=== PATIENT | female | born 1975 | race Caucasian/White ===

== ENCOUNTER → 2016-10-20 | Outpatient (CLI) | payer BC ==
[~2016-10-20] MED LIST: ALPR-411 PO; AMIL5TAB15 PO; B COTAB PO; CALC-348 PO; CALC1CAP36 PO; CZR50 PO; ERGO1CAP41 PO; ESCI1TAB10 PO; LOPE2TAB74 PO; LPT/20 PO; MAGN400T6 PO; MAGN400T7 PO; METO25TA56 PO; MYCO1TAB7 PO; NIFE1TAB53 PO; NIFE30TA83 PO; OXYC-57 PO; PHEN-876 PO; POTA20TA16 PO; PRED-301 PO; PRG1 PO; TPRSR/25 PO; ULT/50 PO; VSC/5 PO; ZOLP10TA6 PO
--- NOTE | 2016-10-23 14:54 | MAMMOGRAPHY REPORT ---
BILATERAL DIGITAL SCREENING MAMMOGRAM TOMOSYNTHESIS WITH CAD: 10/20/2016 CLINICAL HISTORY: Routine screening. Patient has no complaints. TECHNIQUE: Breast tomosynthesis in addition to standard 2D mammography was performed. Current study was also evaluated with a Computer Aided Detection (CAD) system. COMPARISON: Comparison is made to exams dated: 10/18/2015 mammogram and 10/16/2014 mammogram - [facility]. BREAST COMPOSITION: The tissue of both breasts is heterogeneously dense, which may obscure small ma sses. FINDINGS: No suspicious masses, calcifications, or areas of architectural distortion are noted in e ither breast. There has been no significant interval change compared to prior exams. IMPRESSION: ACR BI-RADS CATEGORY 1: NEGATIVE There is no mammographic evidence of malignancy. A 1 year screening mammogram is recommended. The p atient will receive written notification of the results. Approximately 10% of breast cancers are not detected with mammography. A negative mammographic repor t should not delay biopsy if a clinically suggestive mass is present. Michelle Madrid M.D. ah/:10/20/2016 16:30:15 Cullet Crusher: Wendy EUBANKS(R)(M), [facility] letter sent: Normal 1/2 BI-RADS Code: ACR BI-RADS Category 1: Negative
== END | disposition home or self-care (01) ==
LOC: C.MAMM 15:23
PROVIDERS: ATTEND Obstetrics & Gynecology
DX: Z12.31 Encounter for screening mammogram for malignant neoplasm of breast (principal)

== ENCOUNTER → 2016-11-02 | Outpatient (CLI) | payer BC ==
[~2016-11-02] MED LIST changes: -B COTAB PO; -LOPE2TAB74 PO; -MAGN400T7 PO; -NIFE1TAB53 PO; -OXYC-57 PO; -TPRSR/25 PO; -ULT/50 PO
== END | disposition home or self-care (01) ==
LOC: C.LAB 08:25
PROVIDERS: ATTEND Internal Medicine Nephrology
DX: E55.9 Vitamin D deficiency, unspecified (principal); Z94.0 Kidney transplant status

== ENCOUNTER → 2016-11-10 | Day surgery (SDC) | payer BC ==
[2016-10-31 14:05] VITALS: Ht 167.6 cm; Wt 81.8 kg
[~2016-11-10] VITALS: Ht 167.6 cm; Wt 81.8 kg
[~2016-11-10] MED LIST changes: +LIDOCAINE HCL 2% 2 ML VIAL (20MG/ML) ONE; +MIDAZOLAM HCL 1 MG/ML 2ML VIAL ONE; +PROPOFOL IV EMULSION 10 MG/ML 20 ML VIAL IV ONE; +SODIUM CHLORIDE 0.9% 500ML 500 ML IV ONE
--- NOTE | 2016-11-10 10:15 | Endo History and Physical ---
History & Physical Date of Service: Nov 10, 2016. Chief Complaint: Diarrhea Referring Physician: Dr. Turcios History of Present Illness 41 yo CF who presents for colonoscopy secondary to diarrhea. Past Medical History Anxiety, Reflux, CHF, Hypertension, Kidney Disease Past Surgical History Hx Cardiac Surgery: Yes (CARDIAC BIOPSY) Hx Internal Defibrillator: No Hx Pacemaker: No Hx Abdominal Surgery: Yes (APPY, X1, PERITONEAL CATH AND REMOVAL) Hx of Implantable Prosthesis: No Hx Post-Op Nausea and Vomiting: No Hx Cancer Surgery: No Hx Thoracic Surgery: No Hx Orthopedic: No Hx Urinary Tract Surgery: Yes (1 KIDNEY TRANSPLANT) Family History None Social History Smoking Status: Never Smoker Hx Substance Use: No Hx Alcohol Use: No Allergies Coded Allergies: NSAIDs (Verified Allergy, Unknown, contraindicated hx RENAL TRANSPLANT, ) Vancomycin (Verified Allergy, Unknown, rash, 10/31/16) Dobutamine (Verified Adverse Reaction, Severe, SLOW HRT RATE AND SEVERE MIGRAINE, 10/31/16) Hydrocodone (Verified Adverse Reaction, Unknown, itchy scalp, 10/31/16) Current Medications Reported Home Medications Medications Dose Route/Sig Max Daily Dose Days Date Category Vitamin D 65665 Unit (Ergocalciferol) 50,000 Unit Cap 1 Tab PO WK 10/31/16 Reported Vesicare (Solifenacin) 5 Mg Tab 5 Mg PO QAM 10/31/16 Reported Pyridium (Phenazopyridine HCl) 200 Mg Tab 200 Mg PO TID PRN 10/31/16 Reported Procardia Xl Ext Rel (Nifedipine) 30 Mg Tabcr 30 Mg PO HS 10/31/16 Reported Lopressor (Metoprolol Tartrate) 25 Mg Tab 25 Mg PO HS 10/31/16 Reported Mag-Ox (Magnesium Oxide) 400 Mg Tab 3 Tabs PO BID 10/31/16 Reported Lexapro (Escitalopram Oxalate) 20 Mg Tab 20 Mg PO QPM 10/31/16 Reported Calcitriol 0.25 Mcg Cap 1 Tab PO QAM 10/31/16 Reported Amiloride Hcl 5 Mg Tab 1 Tab PO QAM 10/31/16 Reported Jose-Citrate Plus Vitamin (Calcium Citrate-Vitamin D) 1 Tab Tab 1 Tab PO BID 04/25/14 Reported Zolpidem Tartrate 10 Mg Tab 10 Mg PO HS 04/25/14 Reported Atorvastatin Calcium (Atorvastatin) 20 Mg Tab 20 Mg PO HS 04/25/14 Reported Tacrolimus 1 Mg Cap 2 Tabs PO BID 04/25/[address] (Mycophenolate Sodium) 360 Mg Tab 2 Tabs PO BID 04/25/14 Reported Losartan Potassium 50 Mg Tab 2 Tabs PO QAM 03/06/14 Reported Xanax (Alprazolam) 0.5 Mg Tab 0.5 Mg PO BID PRN 03/06/14 Reported Prednisone 5 Mg Tab 5 Mg PO QAM 01/09/12 Reported Klor-Con (Potassium Chloride) 20 Meq Tabcr 3 Tabs PO BID 01/09/12 Reported Vital Signs Weight (Kilograms): 81.82 Height (Feet): 5 Height (Inches): 6 Date Time Temp Pulse Resp B/P Pulse Ox O2 Delivery O2 Flow Rate FiO2 11/10/16 10:01 36.7 56 16 121/81 98 Room Air Physical Exam General Appearance: WD/WN, no apparent distress Respiratory/Chest: Auscultation: breath sounds normal Cardiovascular: Heart Auscultation: RRR Abdomen: Bowel Sounds: normal Inspection & Palpation: soft, non-distended, no tenderness, guarding & rebound Assessment and Plan Assessment: 41 yo CF who presents for colonoscopy secondary to diarrhea. Plan: Proceed with colonoscopy.
--- NOTE | 2016-11-10 11:20 | GI REPORT ---
Procedure Date: 11/10/2016 10:19 AM Procedure: Colonoscopy Indications: Chronic diarrhea Medicines: Monitored Anesthesia Care Complications: No immediate complications. Estimated Blood Loss: Estimated blood loss: none. Procedure: Pre-Anesthesia Assessment: - Prior to the procedure, a History and Physical was performed, and patient medications and allergies were reviewed. The patient's tolerance of previous anesthesia was also reviewed. The risks and benefits of the procedure and the sedation options and risks were discussed with the patient. All questions were answered, and informed consent was obtained. Prior Anticoagulants: The patient has taken no previous anticoagulant or antiplatelet agents. ASA Grade Assessment: III - A patient with severe systemic disease. After reviewing the risks and benefits, the patient was deemed in satisfactory condition to undergo the procedure. After I obtained informed consent, the scope was passed under direct vision. Throughout the procedure, the patient's blood pressure, pulse, and oxygen saturations were monitored continuously. The scope was introduced through the anus and advanced to the terminal ileum. The colonoscopy was performed without difficulty. The patient tolerated the procedure well. The quality of the bowel preparation was good. The terminal ileum, ileocecal valve, appendiceal orifice, and rectum were photographed. Findings: The colon (entire examined portion) appeared normal. Several random biopsies were obtained with cold forceps for histology in the entire colon. Fluid aspiration for cytology was performed. Impression: - The entire examined colon is normal. Fluid aspiration performed. - Several random biopsies were obtained in the entire colon. Recommendation: - Resume previous diet. - Continue present medications. - Repeat colonoscopy for surveillance based on pathology results. - Return to primary care physician as previously scheduled. Diony King, 11/10/2016 11:20:18 AM This report has been signed electronically. Note Initiated On: 11/10/2016 10:19 AM
--- NOTE | 2016-11-10 11:24 | Discharge Instructions ---
Endoscopy Patient Instructions Date / Procedure(s) Performed Nov 10, 2016. Colonoscopy Allergy Information Coded Allergies: NSAIDs (Verified Allergy, Unknown, contraindicated hx RENAL TRANSPLANT, ) Vancomycin (Verified Allergy, Unknown, rash, 10/31/16) Dobutamine (Verified Adverse Reaction, Severe, SLOW HRT RATE AND SEVERE MIGRAINE, 10/31/16) Hydrocodone (Verified Adverse Reaction, Unknown, itchy scalp, 10/31/16) Discharge Date / Findings Nov 10, 2016. Random colon biopsies Stool studies collected Medication Instructions Stopped Medication(s): Patient was told to take her losartan, tacrolimus, prednisone and metoprolol but she did not take anything. OK to resume all medications today as prescribed. Reported Home Medications Medications Dose Route/Sig Max Daily Dose Days Date Category Vitamin D 36559 Unit (Ergocalciferol) 50,000 Unit Cap 1 Tab PO WK 10/31/16 Reported Vesicare (Solifenacin) 5 Mg Tab 5 Mg PO QAM 10/31/16 Reported Pyridium (Phenazopyridine HCl) 200 Mg Tab 200 Mg PO TID PRN 10/31/16 Reported Procardia Xl Ext Rel (Nifedipine) 30 Mg Tabcr 30 Mg PO HS 10/31/16 Reported Lopressor (Metoprolol Tartrate) 25 Mg Tab 25 Mg PO HS 10/31/16 Reported Mag-Ox (Magnesium Oxide) 400 Mg Tab 3 Tabs PO BID 10/31/16 Reported Lexapro (Escitalopram Oxalate) 20 Mg Tab 20 Mg PO QPM 10/31/16 Reported Calcitriol 0.25 Mcg Cap 1 Tab PO QAM 10/31/16 Reported Amiloride Hcl 5 Mg Tab 1 Tab PO QAM 10/31/16 Reported Jose-Citrate Plus Vitamin (Calcium Citrate-Vitamin D) 1 Tab Tab 1 Tab PO BID 04/25/14 Reported Zolpidem Tartrate 10 Mg Tab 10 Mg PO HS 04/25/14 Reported Atorvastatin Calcium (Atorvastatin) 20 Mg Tab 20 Mg PO HS 04/25/14 Reported Tacrolimus 1 Mg Cap 2 Tabs PO BID 04/25/[address] (Mycophenolate Sodium) 360 Mg Tab 2 Tabs PO BID 04/25/14 Reported Losartan Potassium 50 Mg Tab 2 Tabs PO QAM 03/06/14 Reported Xanax (Alprazolam) 0.5 Mg Tab 0.5 Mg PO BID PRN 03/06/14 Reported Prednisone 5 Mg Tab 5 Mg PO QAM 01/09/12 Reported Klor-Con (Potassium Chloride) 20 Meq Tabcr 3 Tabs PO BID 01/09/12 Reported Provider Instructions Activity Restrictions - No exercising or heavy lifting for 24 hours. - Do not drink alcohol the day of the procedure. - Do not drive a car or operate machinery until the day after the procedure. - Do not make any important decisions or sign important papers in 24 hours after the procedure. Following Day: - Return to full activity which may include returning to work/school. Diet Start your diet with liquids and light foods (jello, soup, juice, toast). Then eat your usual diet if not nauseated. Treatment For Common After Affects For mild abdominal pain, bloating, or excessive gas: - Rest - Eat lightly - Lie on right side Follow-Up Information Follow-up with Dr. Turcios as scheduled Anesthesia Information What You Should Know You have had a procedure that required some medicine to reduce anxiety and discomfort. This treatment is called moderate sedation. After receiving the treatment, you may be sleepy, but you will be able to breathe on your own. The effects of the treatment may last for several hours. Follow these instructions along with Activity/Diet recommendations noted above: * Do NOT do anything where dizziness or clumsiness would be dangerous. * Rest quietly at home today, then you can be up and about tomorrow. * Have a responsible person stay with you the rest of today. * You may have had an I.V. today. If so, you may take the dressing off later today. Recommendations Call your doctor if: * Trouble breathing * Continuous vomiting for more than 24 hours * Temperature above 101 degrees * Severe abdominal pain or bloating * Pain not relieved by pain medicine ordered * There is increased drainage or redness from any incision * A large amount of rectal bleeding greater than 2-3 tablespoons. (If you had a polyp/s removed or have hemorrhoids, a small amount of blood - from the rectum is to be expected.) * You have any unanswered questions or concerns. IN THE EVENT OF A SERIOUS EMERGENCY, GO TO THE NEAREST EMERGENCY ROOM Your discharge instructions were prepared by provider iDony King. Patient Instructions Signature Page Heather Dan Patient (or Guardian) Signature/Date: I have read and understand the instructions given to me by my caregivers. Caregiver/RN/Doctor Signature/Date: The above-named patient and/or guardian has received patient instructions on this date. + Original Patient Signature Page (only) stays with chart. Please make copy for patient.
--- NOTE | 2016-11-10 11:40 | Anesthesiology Progress Note ---
Anesthesia Post Op Note Date & Time Nov 10, 2016 at 11:40 Vital Signs Pain Intensity: 0 Vital Signs Past 12 Hours Date Time Temp Pulse Resp B/P Pulse Ox O2 Delivery O2 Flow Rate FiO2 11/10/16 11:26 54 16 129/72 97 Room Air 11/10/16 11:11 60 16 132/60 97 Room Air 11/10/16 10:01 36.7 56 16 121/81 98 Room Air Notes Mental Status: alert / awake / arousable, participated in evaluation Pt Amnestic to Procedure: Yes Nausea / Vomiting: adequately controlled Pain: adequately controlled Airway Patency, RR, SpO2: stable & adequate BP & HR: stable & adequate Hydration State: stable & adequate Anesthetic Complications: no major complications apparent
[2016-11-10 11:41] VITALS: BP 123/75; PULSE 52; O2SAT 99
== END | disposition home or self-care (01) ==
LOC: C.GI 09:14
PROVIDERS: ATTEND Internal Medicine
DX: R19.7 Diarrhea, unspecified (principal); K21.9 Gastro-esophageal reflux disease without esophagitis; F41.9 Anxiety disorder, unspecified; I51.9 Heart disease, unspecified; I10 Essential (primary) hypertension; Z90.49 Acquired absence of other specified parts of digestive tract; Z98.890 Other specified postprocedural states; Z88.5 Allergy status to narcotic agent; Z88.8 Allergy status to other drugs, medicaments and biological substances

== ENCOUNTER → 2016-12-05 | Outpatient (CLI) | payer BC ==
[~2016-12-05] MED LIST changes: -LIDOCAINE HCL 2% 2 ML VIAL (20MG/ML) ONE; -MIDAZOLAM HCL 1 MG/ML 2ML VIAL ONE; -PROPOFOL IV EMULSION 10 MG/ML 20 ML VIAL IV ONE; -SODIUM CHLORIDE 0.9% 500ML 500 ML IV ONE
[2016-12-05 11:14] LABS: CHOLESTEROL/HDL RATIO 2.6
[2016-12-05 11:18] LABS: ESTIMATED AVERAGE GLUCOSE 111 mg/dl; HA1C FLAG Normal (Normal)
[2016-12-08 18:39] LABS: IGA SERUM 122 mg/dL (81-463); TIS TRANS IGA 1 U/mL (<4)
== END | disposition home or self-care (01) ==
LOC: C.LAB 09:32
PROVIDERS: ATTEND Registered Nurse
DX: Z94.0 Kidney transplant status (principal); E78.00 Pure hypercholesterolemia, unspecified; R15.9 Full incontinence of feces

== ENCOUNTER → 2017-03-07 | Outpatient (CLI) | payer BC ==
[~2017-03-07] MED LIST changes: -ERGO1CAP41 PO; +ERGO500011 PO; -PRG1 PO; +TACR1CAP14 PO
== END | disposition home or self-care (01) ==
LOC: C.LAB 16:56
PROVIDERS: ATTEND Nurse Practitioner Adult Health
DX: N39.0 Urinary tract infection, site not specified (principal); R35.0 Frequency of micturition; R39.15 Urgency of urination

== ENCOUNTER → 2017-03-13 | Outpatient (CLI) | payer BC | END | disposition home or self-care (01) | LOC: C.PAPS 13:52 | PROVIDERS: ATTEND Obstetrics & Gynecology | DX: Z01.419 Encounter for gynecological examination (general) (routine) without abnormal findings (principal) ==

== ENCOUNTER → 2017-07-04 | Outpatient (CLI) | payer BC ==
[~2017-07-04] MED LIST changes: +ERGO1CAP41 PO; -ERGO500011 PO; +PRG1 PO; -TACR1CAP14 PO
== END | disposition home or self-care (01) ==
LOC: C.LAB 08:02
PROVIDERS: ATTEND Internal Medicine Nephrology
DX: E55.9 Vitamin D deficiency, unspecified (principal); Z94.0 Kidney transplant status

== ENCOUNTER → 2017-07-23 | Outpatient (CLI) | payer BC ==
[2017-07-23 14:58] LABS: URINE APPEARANCE CLEAR (CLEAR); URINE BILIRUBIN NEG (NEG); URINE COLOR YELLOW; URINE EPITHELIAL CELL AUTO 20-30 /lpf (0-5); URINE NITRITE NEG (NEG); URINE SPECIFIC GRAVITY 1.017 (1.000-1.030); UROBILINOGEN NEG (NEG)
[2017-07-23 14:59] LABS: MANUAL MICROSCOPIC REQUIRED? NO; REVIEW REQ? NO
== END | disposition home or self-care (01) ==
LOC: C.LAB1850 12:08
PROVIDERS: ATTEND Physician Assistant
DX: R30.0 Dysuria (principal)

== ENCOUNTER → 2017-08-29 | Outpatient (CLI) | payer BC ==
[~2017-08-29] MED LIST changes: -ERGO1CAP41 PO; +ERGO500011 PO; -PRG1 PO; +TACR1CAP14 PO
== END | disposition home or self-care (01) ==
LOC: C.LABSPEC 17:33
PROVIDERS: ATTEND Nurse Practitioner Adult Health
DX: N39.0 Urinary tract infection, site not specified (principal)

== ENCOUNTER → 2017-09-03 | Outpatient (CLI) | payer BC ==
--- NOTE | 2017-09-03 08:17 | DIAGNOSTIC IMAGING REPORT ---
ULTRASOUND OF THE RIGHT LOWER QUADRANT CLINICAL HISTORY: Right lower quadrant abdominal pain. Reported history of appendectomy. COMPARISON STUDY: No priors. FINDINGS: Real-time, grayscale, and color flow sonography of the right lower quadrant was performed to assess for acute appendicitis. The appendix was not visualized and is reported surgically absent. No inflammatory changes or free fluid are seen in the right lower quadrant. No lymphadenopathy was seen. IMPRESSION: The appendix was not visualized and is reported surgically absent. No sonographic abnormality is identified in the right lower quadrant. Electronically signed by: Beau Beaulieu M.D. 09/03/2017 8:16 AM Dictated Date/Time: 09/03/2017 8:15 AM
== END | disposition home or self-care (01) ==
LOC: C.ULTR 07:29
PROVIDERS: ATTEND Physician Assistant
DX: R30.0 Dysuria (principal); R10.31 Right lower quadrant pain

== ENCOUNTER → 2017-10-23 | Outpatient (CLI) | payer OTHER ==
[~2017-10-23] MED LIST changes: +OPTIRAY 320 IV PRN
--- NOTE | 2017-10-23 09:54 | DIAGNOSTIC IMAGING REPORT ---
ABD/PELVIS COMBO CT DOSE: 1684.98 mGycm HISTORY: Hematuria R31.9 HematuriaAut# [id number] valid 10/17/17 E X0D E [id number] TECHNIQUE: Multiaxial CT images of the abdomen and pelvis were performed pre and post intravenous contrast enhancement. A dose lowering technique was utilized adhering to the principles of ALARA. COMPARISON STUDY: Renal ultrasound 09/01/2014. Transplant ultrasound 01/20/2015 FINDINGS: Findings component of the study shows no evidence for abnormal calcification. No abnormal renal vascular calcifications on the unenhanced exam. [place] kidneys are atrophic. Enhanced component of the study in multiphase fashion demonstrates lung bases to be clear. Liver is uniform throughout. Possibly very small gallbladder polyps. [place] kidneys are again atrophic with no evidence for hydronephrosis. Bowel pattern overall is nonobstructive. There is a left renal transplant within the left soft tissue pelvis. Collecting system is unremarkable. There are no filling defects or obstructive change. Bladder is midline. Uterus is anteflexed. It is somewhat bulky in appearance raising the possibility of uterine fibroid involvement. 1.5 cm right ovarian cyst. 1 cm left ovarian cyst. Osseous structures are unremarkable for age. IMPRESSION: 1. Atrophic [place] kidneys. 2. Unremarkable left renal pelvic transplant with no filling defect or hydronephrosis. 3. Probable fibroid uterus. 4. Small bilateral ovarian cysts. 5. All remaining components of the study are unremarkable. The above report was generated using voice recognition software. It may contain grammatical, syntax or spelling errors. Electronically signed by: Jose Ferrell M.D. 10/23/2017 9:53 AM Dictated Date/Time: 10/23/2017 9:48 AM
== END | disposition home or self-care (01) ==
LOC: C.CTS 08:55
PROVIDERS: ATTEND Urology
DX: R31.9 Hematuria, unspecified (principal); N26.1 Atrophy of kidney (terminal); Z94.0 Kidney transplant status; N83.201 Unspecified ovarian cyst, right side; N83.202 Unspecified ovarian cyst, left side

== ENCOUNTER → 2017-10-26 | Outpatient (CLI) | payer OTHER ==
[~2017-10-26] MED LIST changes: -LPT/20 PO; +LPT20 PO; -OPTIRAY 320 IV PRN
--- NOTE | 2017-10-29 14:46 | MAMMOGRAPHY REPORT ---
BILATERAL DIGITAL SCREENING MAMMOGRAM TOMOSYNTHESIS WITH CAD: 10/26/2017 CLINICAL HISTORY: Routine screening. TECHNIQUE: Breast tomosynthesis in addition to standard 2D mammography was performed. Current study was also evaluated with a Computer Aided Detection (CAD) system. COMPARISON: Comparison is made to exams dated: 10/20/2016 mammogram, 10/18/2015 mammogram, and 10/16/2014 mammogram - [facility]. BREAST COMPOSITION: The tissue of both breasts is heterogeneously dense, which may obscure small mas ses. FINDINGS: No suspicious masses, calcifications, or areas of architectural distortion are noted in ei ther breast. There has been no significant interval change compared to prior exams. IMPRESSION: ACR BI-RADS CATEGORY 1: NEGATIVE There is no mammographic evidence of malignancy. A 1 year screening mammogram is recommended. The pa tient will receive written notification of the results. Approximately 10% of breast cancers are not detected with mammography. A negative mammographic report should not delay biopsy if a clinically suggestive mass is present. Michelle Madrid M.D. ah/:10/26/2017 16:27:15 Cda Teacher: Wendy EUBANKS(Griselda)(M), [facility] letter sent: Normal 1/2 BI-RADS Code: ACR BI-RADS Category 1: Negative
== END | disposition home or self-care (01) ==
LOC: C.MAMM 15:50
PROVIDERS: ATTEND Obstetrics & Gynecology
DX: Z12.31 Encounter for screening mammogram for malignant neoplasm of breast (principal)

== ENCOUNTER → 2017-11-23 | Outpatient (CLI) | payer OTHER ==
[~2017-11-23] MED LIST changes: +OPTIRAY 320 IV PRN
--- NOTE | 2017-11-23 14:44 | DIAGNOSTIC IMAGING REPORT ---
CT ANGIOGRAPHY HEAD COMBO CT DOSE: 1079.51 mGycm CLINICAL HISTORY: Hypertension. Headaches. Family history of cerebral aneurysm. TECHNIQUE: Unenhanced images were obtained to the brain. CT angiography of the head was then performed following administration of 70 cc of Optiray 320. MIP imaging was obtained. A dose lowering technique was utilized adhering to the principles of ALARA. COMPARISON STUDY: None. FINDINGS: The noncontrast study, no intra or extra-axial mass lesions are visualized. There is no CT evidence of acute cortical infarction. There is no midline shift. There is no hemorrhage. There is no hydrocephalus. Postcontrast images reveal no pathologically enhancing masses. There are no major intracranial occlusions. There is no evidence of significant intracranial stenosis. There are no lesion suspicious for aneurysm. The dural venous sinuses appear patent. IMPRESSION: Unremarkable CT angiography of the brain. Electronically signed by: Kyle Proctor M.D. 11/23/2017 2:42 PM Dictated Date/Time: 11/23/2017 2:39 PM
== END | disposition home or self-care (01) ==
LOC: C.CTS 13:41
PROVIDERS: ATTEND Internal Medicine
DX: Z82.49 Family history of ischemic heart disease and other diseases of the circulatory system (principal)

== ENCOUNTER → 2017-11-28 | Outpatient (CLI) | payer OTHER ==
[~2017-11-28] MED LIST changes: -OPTIRAY 320 IV PRN
[2017-11-28 09:31] LABS: BASO % 0.2 %; BASO ABS # 0.01 K/uL (0-0.2); EOS % 1.1 %; EOS ABS # 0.07 K/uL (0-0.5); HEMATOCRIT 40.4 % (37-47); HEMOGLOBIN 13.4 g/dL (12.0-16.0); IG# 0.02 K/uL (0.00-0.02); LYMPH % 20.9 %; MEAN CELL VOLUME 93.5 fL (80-100); MEAN CORPUSCULAR HGB CONC 33.2 g/dl (32-36); MONO % 11.6 %; MONO ABS # 0.72 K/uL (0.11-0.59); NEUT % 65.9 %; NEUT ABS # 4.11 K/uL (1.4-6.5); PLATELET COUNT 177 K/uL (130-400); RED CELL DISTRIBUTION WIDTH CV 12.7 % (11.5-14.5); RED CELL DISTRIBUTION WIDTH SD 43.4 fL (36.4-46.3); WHITE BLOOD COUNT 6.23 K/uL (4.8-10.8)
[2017-11-28 09:47] LABS: HEMOGLOBIN A1C 5.5 % (4.5-5.6)
[2017-11-30 00:04] LABS: FK506 TACROLIMUS HIGHLY SENS 5.5 MCG/L (5-20)
== END | disposition home or self-care (01) ==
LOC: C.LAB 08:08
PROVIDERS: ATTEND Internal Medicine
DX: E78.00 Pure hypercholesterolemia, unspecified (principal); Z94.0 Kidney transplant status

== ENCOUNTER → 2017-12-03 | Outpatient (CLI) | payer OTHER ==
--- NOTE | 2017-12-03 14:56 | DIAGNOSTIC IMAGING REPORT ---
ABDOMINAL ULTRASOUND HISTORY: Abdominal wall pain. COMPARISON: CT of the abdomen and pelvis October 23, 2017. FINDINGS: No right lower quadrant hernia was identified. No mass, fluid collection or other sonographic abdomen was identified within the right lower quadrant abdominal wall. IMPRESSION: No right lower quadrant hernia or other sonographic abnormality within the right lower quadrant abdominal wall. Electronically signed by: Marvel Mccormack M.D. 12/03/2017 2:55 PM Dictated Date/Time: 12/03/2017 2:53 PM
--- NOTE | 2017-12-03 15:03 | DIAGNOSTIC IMAGING REPORT ---
EXAMINATION: PELVIC ULTRASOUND CLINICAL HISTORY: R14.0 Bloating COMPARISON STUDY: CT scan dated 10/23/2017 FINDINGS: The uterus measured 9.0 x 5.3 x 4.9 cm. There is heterogeneous myometrial echotexture The endometrial stripe measured 5 mm. The right ovary measured 37 x 34 x 19 mm. There is a 31 x 44 x 18 mm right ovarian cyst. No septations or mural nodules are visualized. The left ovary measured 27 x 22 x 16 mm. There is no ultrasonographic evidence of ovarian torsion. It should be noted that ovarian torsion can be present with normal Doppler ultrasonographic findings. There was no evidence of pathologic free pelvic fluid. IMPRESSION: 1. 31 x 24 x 18 mm right ovarian cyst. No mural nodules or septations were visualized 2. Heterogeneous myometrial echotexture 3. 5 mm endometrial stripe Electronically signed by: Kyle Proctor M.D. 12/03/2017 3:02 PM Dictated Date/Time: 12/03/2017 2:58 PM
== END | disposition home or self-care (01) ==
LOC: C.ULTR 12:43
PROVIDERS: ATTEND Obstetrics & Gynecology
DX: R14.0 Abdominal distension (gaseous) (principal)

== ENCOUNTER → 2017-12-21 | Outpatient (CLI) | payer OTHER | END | disposition home or self-care (01) | LOC: C.LABSPEC 08:56 | PROVIDERS: ATTEND Registered Nurse | DX: R14.0 Abdominal distension (gaseous) (principal); R19.7 Diarrhea, unspecified ==

== ENCOUNTER → 2018-01-10 | Outpatient (CLI) | payer OTHER | END | disposition home or self-care (01) | LOC: C.LAB 08:09 | PROVIDERS: ATTEND Registered Nurse | DX: R19.7 Diarrhea, unspecified (principal) ==

== ENCOUNTER → 2018-02-20 | Outpatient (CLI) | payer OTHER ==
[~2018-02-20] MED LIST changes: +POTA-639 PO; -POTA20TA16 PO; -TACR1CAP14 PO; +TACR1CAP3 PO
== END | disposition home or self-care (01) ==
LOC: C.LAB 09:58
PROVIDERS: ATTEND Internal Medicine Nephrology
DX: Z94.0 Kidney transplant status (principal)

== ENCOUNTER → 2018-05-06 | Outpatient (CLI) | payer OTHER ==
[~2018-05-06] MED LIST changes: +AZAT50TA17 PO; -CZR50 PO; -ESCI1TAB10 PO; +ESCI1TAB9 PO; +LOSA50TA6 PO; -METO25TA56 PO; -MYCO1TAB7 PO; -NIFE30TA83 PO; +TPRSR25 PO; -VSC/5 PO
[2018-05-06 10:59] LABS: ALBUMIN 3.4 gm/dl (3.4-5.0); ALKALINE PHOSPHATASE 77 U/L (45-117); ALT/SGPT 177 U/L (12-78); AST/SGOT 121 U/L (15-37); BLOOD UREA NITROGEN 16 mg/dl (7-18); CALCIUM 8.2 mg/dl (8.5-10.1); CARBON DIOXIDE 25 mmol/L (21-32); CREATININE 1.24 mg/dl (0.60-1.20); GLUCOSE 77 mg/dl (70-99); SODIUM 142 mmol/L (136-145); TOTAL PROTEIN 6.2 gm/dl (6.4-8.2)
== END | disposition home or self-care (01) ==
LOC: C.LAB 09:31
PROVIDERS: ATTEND Internal Medicine Nephrology
DX: R79.89 Other specified abnormal findings of blood chemistry (principal); Z94.0 Kidney transplant status

== ENCOUNTER → 2018-05-11 | Outpatient (CLI) | payer OTHER ==
[2018-05-11 09:53] LABS: ALBUMIN 3.4 gm/dl (3.4-5.0); ALKALINE PHOSPHATASE 80 U/L (45-117); ALT/SGPT 244 U/L (12-78); AST/SGOT 140 U/L (15-37); BLOOD UREA NITROGEN 21 mg/dl (7-18); CALCIUM 8.4 mg/dl (8.5-10.1); CARBON DIOXIDE 27 mmol/L (21-32); CREATININE 1.25 mg/dl (0.60-1.20); GLUCOSE 85 mg/dl (70-99); SODIUM 139 mmol/L (136-145); TOTAL PROTEIN 6.4 gm/dl (6.4-8.2)
== END | disposition home or self-care (01) ==
LOC: C.LAB 08:52
PROVIDERS: ATTEND Internal Medicine Nephrology
DX: R74.8 Abnormal levels of other serum enzymes (principal); Z94.0 Kidney transplant status

== ENCOUNTER → 2018-05-15 | Outpatient (CLI) | payer OTHER ==
[2018-05-15 15:03] LABS: ALKALINE PHOSPHATASE 74 U/L (45-117); ALT/SGPT 177 U/L (12-78); AST/SGOT 69 U/L (15-37); BLOOD UREA NITROGEN 24 mg/dl (7-18); CALCIUM 8.8 mg/dl (8.5-10.1); CARBON DIOXIDE 27 mmol/L (21-32); CREATININE 1.42 mg/dl (0.60-1.20); GLUCOSE 90 mg/dl (70-99); POTASSIUM 4.3 mmol/L (3.5-5.1); SODIUM 136 mmol/L (136-145); TOTAL PROTEIN 7.1 gm/dl (6.4-8.2)
== END | disposition home or self-care (01) ==
LOC: C.LAB 13:32
PROVIDERS: ATTEND Internal Medicine Nephrology
DX: Z94.0 Kidney transplant status (principal); R74.8 Abnormal levels of other serum enzymes; Z76.89 Persons encountering health services in other specified circumstances; T45.1X5A Adverse effect of antineoplastic and immunosuppressive drugs, initial encounter

== ENCOUNTER 2023-09-07 12:22 | Inpatient (IN) ==
[2023-09-07] MEDS ORDERED: SODIUM CHLORIDE 0.9% 1,000 ML IV ONE (13:08)
[2023-09-07] MEDS ORDERED: CEFEPIME 2,000 MG/20 ML VIAL IV STA (13:20)
--- NOTE | 2023-09-07 13:33 | Emergency Department Note ---
Impression & Plan Pyelonephritis, Immunocompromised, History of renal transplant, Leukocytosis ED Provider Note NAME: ROSE MARY ESTEVES AGE: 47 SEX: F : 1975 ARRIVES VIA: Walk-In INFORMANT: [Patient] ED PROVIDER(S): [Beau Meek MD] CHIEF COMPLAINT: Fever HISTORY OF PRESENT ILLNESS: The patient is a 47-year-old female with a history of renal transplant. She states that she has had some urinary symptoms for a few days. She has had some burning, incontinence and urinary frequency. She then began noticing some lower pelvic pain, she thought maybe this was menstrual cramping. She had some chills and felt hot yesterday and then today, had a temperature of 102 F. She presents for evaluation. The patient has not been vomiting. She has noticed some nausea though. No diarrhea. No vaginal discharge or vaginal bleeding. No cough or respiratory complaints. The patient does have a history of UTI. She states that this seems more than a simple UTI though. The patient's renal transplant is in the left pelvis. PMHx/PSHx/Social Hx: See Below PHYSICAL EXAM: GENERAL: Patient is in no acute distress. HEENT: No acute trauma, normocephalic atraumatic, mucous membranes moist, no nasal congestion. NECK: No stridor, no adenopathy, no meningismus, trachea is midline. LUNGS: Clear to auscultation bilaterally, no wheeze, no rhonchi, breath sounds equal. HEART: Without murmurs gallops or rubs, regular rate and rhythm. ABDOMEN: Soft, tender in the lower abdomen/pelvis bilaterally, tender over the renal transplant site. EXTREMITIES: No cyanosis, full range of motion of all the joints without pain or difficulty. NEUROLOGIC: Oriented x 3, no acute motor or sensory deficits, no focal weakness. SKIN: No jaundice, no diaphoresis. Back: No flank discomfort to percussion. DIFFERENTIAL DIAGNOSIS: Immunocompromise, UTI, pyelonephritis, renal failure, bacteremia or sepsis, among others. EMERGENCY DEPARTMENT PROCEDURES: MEDICAL DECISION MAKING: There is a moderate leukocytosis, this certainly is consistent with infection. There was a normal hemoglobin and platelet count. Potassium and sodium both slightly low but not in need of emergent correction. There was no renal failure. Lactic acid level was not elevated making severe sepsis less likely. The bilirubin was slightly elevated, the remaining liver enzymes were unremarkable. No evidence for pancreatitis. testing was negative. Urinalysis was consistent with infection. Renal ultrasound shows some fullness of the renal transplant which seemed baseline. There was no evidence for urinary obstruction. On exam, the patient was tender in the lower pelvis and in the area over her transplant. The patient received IV saline, 1 L. She was given IV cefepime and oral Tylenol. I spoke with Dr. Peg Moreau. Admission and IV antibiotics was recommended. I did speak with the case management team, I spoke with the patient at length. The on-call hospitalist was consulted. In short, the patient appears to have pyelonephritis. She is immunocompromised with a renal transplant and requires IV antibiotic therapy. Prior/Outside records/notes reviewed: Urology note from 08/01/2023 discussing her renal transplant and history of UTI. Imaging/x-ray results per my interpretation: Chronic Medical/Social conditions affecting care: Renal transplant history with resultant immunocompromise. Care/Management discussed with: Dr. Ruvalcaba at [facility], the medical case manager and on- call hospitalist. Level of care consideration(s): After review of the information above and other included data: --I believe the patient requires escalation of care to admission DISPOSITION: Admission Past Med/Surg History Medical History Urinary tract infection Left knee pain Gestational diabetes Right groin pain Sinusitis C. difficile diarrhea 09/2021 Watery stools Daytime somnolence GERD (gastroesophageal reflux disease) Anxiety disorder, unspecified Cardiomyopathy, peripartum, (2005) EF 25%, improved to normal on 2018 stress echo Endometriosis Hemolytic uremic syndrome Hypercholesterolemia Hypertension Insomnia Irritable bowel syndrome Ovarian cyst Surgical History (Updated 09/07/23 @ 17:38 by Beau Meek MD) Distal radial [facility] S/P cholecystectomy History of esophagogastroduodenoscopy (EGD) 09/12/12 Hx of colonoscopy 11/10/16 H/O wrist surgery Ganglion cyst excision H/O tooth extraction History of endometrial ablation S/P section S/P thyroid biopsy 12/19/10 @ [facility] Status post biopsy of kidney 08/27/18 History of biopsy Endomyocardial S/P appendectomy Kidney replaced by transplant Hx of kidney transplant (2010) Family History Father Colonic polyp Colorectal cancer Diabetes Irritable bowel syndrome Osteoporosis Grandfather (Paternal) Colorectal cancer Mother Depression Cerebral aneurysm Irritable bowel syndrome Hypertension Osteoporosis Denies family history of Ovarian cancer Breast cancer Social History Smoking Status: Never smoker Do You Dip or Chew Tobacco: No; Hx Alcohol Use: No Hx Substance Use: No Preferred Language: Peruvian Visual Impairment: No Limitations Hearing Ability: Normal marital status: Current Living Situation: Spouse and Family current occupational status: unemployed current occupation: Speech Pathologist Feels Safe at Home: Yes Childhood Exposure to Second-Hand Smoke: Yes Diet: low salt caffeine: Yes during the past year weight has: increased > 10 lbs Dental Care, Regularly: Yes Physical Activity Frequency: Daily Seatbelt Use: always Sunscreen Use: Yes Allergies Allergies Allergy/AdvReac Type Severity Reaction Status Date / Time adhesive tape Allergy Intermediate Rash Verified 09/07/23 15:28 vancomycin Allergy Intermediate Rash Verified 09/07/23 15:28 dobutamine AdvReac Severe SLOW HRT Verified 09/07/23 15:28 RATE AND SEVERE MIGRAINE leuprolide [From Lupron] AdvReac Intermediate weight Verified 09/07/23 15:28 gain; hair loss metolazone AdvReac Intermediate migraine Verified 09/07/23 15:28 ondansetron AdvReac Intermediate migraine Verified 09/07/23 15:28 triamcinolone [From Kenalog] AdvReac Intermediate racing Verified 09/07/23 15:28 heart rate NSAIDS (Non-Steroidal AdvReac Unknown Contraindicated Verified 09/07/23 15:28 Anti-Inflamma History - RENAL TRANSPLANT Home Meds Home Medications Medication Instructions Recorded Confirmed prednisone 5 mg tablet 2.5 mg PO QAM 06/03/19 09/07/23 potassium chloride 20 mEq 60 meq PO BIDM 11/07/19 09/07/23 tablet,extended release(part/cryst) cholecalciferol (vitamin D3) 1,250 50,000 units PO WK 12/20/19 09/07/23 mcg (50,000 unit) capsule loperamide 2 mg capsule (Imodium 2 mg PO HS 01/05/21 09/07/23 A-D) duloxetine 20 mg capsule,delayed 20 mg PO DAILY 02/03/21 09/07/23 release (Cymbalta) clonidine HCl 0.1 mg tablet 0.1 mg PO HS 05/16/21 09/07/23 losartan 50 mg tablet 50 mg PO BID 02/10/22 09/07/23 magnesium oxide 400 mg (241.3 mg 1,200 mg PO BIDM 08/17/22 09/07/23 magnesium) tablet mycophenolate sodium 360 mg 360 mg PO BID 08/17/22 09/07/23 tablet,delayed release tacrolimus 1 mg capsule, 3 mg PO HS 08/17/22 09/07/23 immediate-release (Prograf) Saccharomyces boulardii 250 mg 500 mg PO QDL 09/07/23 09/07/23 capsule (Florastor) amiloride 5 mg tablet 10 mg PO QAM 09/07/23 09/07/23 atorvastatin 20 mg tablet 20 mg PO HS 09/07/23 09/07/23 calcium carbonate 600 mg-vitamin 2 tab PO DAILY 09/07/23 09/07/23 D3 20 mcg (800 unit) tablet (Caltrate with Vitamin D3) metoprolol succinate 25 mg 25 mg PO HS 09/07/23 09/07/23 tablet,extended release 24 hr nifedipine 30 mg tablet,extended 30 mg PO HS 09/07/23 09/07/23 release phenazopyridine 99.5 mg tablet 199 mg PO DIRECTED PRN URINARY 09/07/23 09/07/23 (Azo Urinary Pain Relief) DISCOMFORT prazosin 1 mg capsule 2 mg PO HS 09/07/23 09/07/23 psyllium husk 3.4 gram/5.4 gram 1 tbsp PO QDL 09/07/23 09/07/23 oral powder (Metamucil) Previous Rx's Medication Instructions Recorded hydrochlorothiazide 12.5 mg capsule 12.5 mg PO DAILY #90 caps 11/02/22 amitriptyline 10 mg tablet 10 mg PO HS #30 tabs 06/07/23 Results & Data (ED) Vital Signs Vital Signs - 24 hr 09/07/23 12:34 09/07/23 13:51 09/07/23 14:00 Temperature 37.3 C Temperature Source Oral Pulse Rate 99 H 80 81 Pulse Rate from SpO2 Sensor 82 Respiratory Rate 18 20 Blood Pressure 122/87 124/89 Blood Pressure Mean 98 100 Pulse Oximetry 94 95 Oxygen Delivery Method Room Air Sepsis Recent Fever Within 48 Hours Yes Sepsis New/Unexplained Change in Mental Status No Sepsis Action Taken by Nursing No Action Required 09/07/23 15:20 09/07/23 16:00 Temperature Temperature Source Pulse Rate 81 76 Pulse Rate from SpO2 Sensor 82 77 Respiratory Rate 14 19 Blood Pressure 131/74 135/82 Blood Pressure Mean 93 99 Pulse Oximetry 96 97 Oxygen Delivery Method Sepsis Recent Fever Within 48 Hours Sepsis New/Unexplained Change in Mental Status Sepsis Action Taken by Usp Medications Current Medication List: was personally reviewed by me Laboratory Data Attestation: I reviewed the patient's lab results. 09/07/23 13:31 09/07/23 13:31 Lab Results 09/07/23 09/07/23 Range/Units 13:20 13:31 WBC 16.23 H (4.8-10.8) K/ul RBC 4.74 (4.20-5.40) M/uL Hgb 14.1 (12.0-16.0) g/dl Hct 42.0 (37.0-47.0) % MCV 88.6 (80.0-100.0) fL MCH 29.7 (25.0-34.0) pg MCHC 33.6 (32.0-36.0) g/dL RDW Std Deviation 40.0 (36.4-46.3) fL RDW Coeff of Jerman 12.3 (11.5-14.5) % Plt Count 217 (130-400) K/uL MPV 9.3 L (9.4-12.4) fL Immature Gran % (Auto) 0.6 % Neut % (Auto) 78.4 % Lymph % (Auto) 8.6 % Eagle % (Auto) 12.1 % Eos % (Auto) 0.0 % Baso % (Auto) 0.3 % Neut # (Auto) 12.71 H (1.40-6.50) K/uL Lymph # (Auto) 1.40 (1.20-3.40) K/uL Eagle # (Auto) 1.97 H (0.11-0.59) K/uL Eos # (Auto) 0.00 (0.00-0.50) K/uL Baso # (Auto) 0.05 (0.00-0.20) K/uL Immature Gran # (Auto) 0.10 (0.01-0.20) K/uL Sodium 133 L (136-145) mmol/L Potassium 3.3 L (3.5-5.1) mmol/L Chloride 98 (98-107) mmol/L Carbon Dioxide 24 (21-32) mmol/L Anion Gap 11 (3-11) BUN 13 (6-23) mg/dl Creatinine 1.08 (0.6-1.2) mg/dl Est Cr Clr Drug Dosing 71.1 ml/min Est GFR ( Amer) 69.8 ml/min Est GFR (Non-Af Amer) 60.2 ml/min BUN/Creatinine Ratio 12.0 (10-20) Glucose 110 H (70-99(Fasting)) mg/dl Lactate 0.9 (0.4-2.0) mmol/L Calcium 8.9 (8.6-10.3) mg/dl Magnesium 1.8 (1.7-2.4) mg/dl Total Bilirubin 1.7 H (0.2-1.0) mg/dl AST 29 (13-39) U/L ALT 26 (7-52) U/L Alkaline Phosphatase 75 (34-104) U/L Total Protein 7.2 (6.0-8.3) gm/dl Albumin 4.1 (3.4-5.0) gm/dl Globulin 3.1 (2.5-4.0) gm/dl Albumin/Globulin Ratio 1.3 (0.9-2) Lipase 32 (11-82) U/L HCG, Qual Negative (Negative) Urine Color Dark Yellow Urine Appearance Clear (Clear) Urine pH 8.5 H (4.5-7.5) Ur Specific [place] 1.007 (1.000-1.030) Urine Protein 1+ H (Negative) Urine Glucose (UA) Negative (Negative) Urine Ketones Negative (Negative) Urine Blood 2+ H (Negative) Urine Nitrite Positive A (Negative) Urine Bilirubin Negative (Negative) Urine Urobilinogen Negative (Negative) Ur Leukocyte Esterase 2+ H (Negative) Urine WBC (Auto) >30 H (0-5) /hpf Urine RBC (Auto) 5-10 H (0-4) /hpf U Hyaline Cast (Auto) 0 (0-5) /lpf U Epithel Cells (Auto) 10-20 H (0-5) /lpf Urine Bacteria (Auto) Negative (Negative) Administered Medications Potassium Chloride (K Familia / Wtr) 10 meq in 100 mls @ 100 mls/hr IV Q1H CHRIS Stop: 09/07/23 18:44 Last Admin: 09/07/23 17:26 Dose: 100 mls/hr Documented By: MT Discontinued Medications Acetaminophen (Acetaminophen 500 Mg Tab) 1,000 mg PO NOW STA Stop: 09/07/23 15:49 Last Admin: 09/07/23 16:11 Dose: 1,000 mg Documented By: SLB Sodium Chloride (Nss) 1,000 mls @ 999 mls/hr IV .Q1H1M ONE Stop: 09/07/23 14:08 Last Admin: 09/07/23 15:21 Dose: 999 mls/hr Documented By: PAUL Cefepime HCl (Maxipime) 2,000 mg in 20 mls @ 5 mls/min IV NOW STA; Protocol Stop: 09/07/23 13:23 Last Admin: 09/07/23 15:21 Dose: 5 mls/min Documented By: PAUL Imaging Data Radiologist's Impression: Renal Ultrasound 09/07/23 13:57 US renal transplant w dop CLINICAL HISTORY: renal transplant, pain, uti COMPARISON STUDY: Abdomen and pelvis CT 11/04/2021. FINDINGS: The patient's known severely atrophic [place] kidneys are not well visualized. There is a left lower quadrant renal transplant again noted. Mild fullness within the renal collecting systems without hydronephrosis. This remains unchanged. Normal corticomedullary differentiation and cortical thickness. The renal transplant vein and left iliac vein are patent. Velocities and waveforms within the renal transplant artery are within normal limits measuring up to 96 cm/s. Prevoid volume of the bladder is 114 cc. There is a post void residual of 40 cc. IMPRESSION: 1. Mild fullness within the left lower quadrant renal transplant without hydronephrosis. This is similar to the prior CT examination. 2. The transplanted renal artery and vein are patent. 3. Post void residual of 40 cc. ACT 112: Negative or not required by law. Electronically signed by: Irving Wan M.D. 09/07/2023 3:32 PM Discharge Plan Visit Data Chief Complaint: Fever Stated Complaint: fever of 102, possible uti ED Provider: Beau Meek Discharge Problem: Pyelonephritis, Immunocompromised, History of renal transplant, Leukocytosis Patient Disposition: Admitted As Inpatient Condition: Fair Forms Stand Alone Forms: [facility] Prescriptions Prescriptions: No Action duloxetine [Cymbalta] 20 mg capsule,delayed release(DR/EC) 20 mg PO DAILY hydrochlorothiazide 12.5 mg capsule 12.5 mg PO DAILY Qty: 90 3RF cholecalciferol (vitamin D3) 1,250 mcg (50,000 unit) capsule 50,000 units PO WK Rx Instructions: [place] clonidine HCl 0.1 mg tablet 0.1 mg PO HS loperamide [Imodium A-D] 2 mg capsule 2 mg PO HS Rx Instructions: THEN PRN IF DIARRHEA magnesium oxide 400 mg (241.3 mg magnesium) tablet 1,200 mg PO BIDM amitriptyline 10 mg tablet 10 mg PO HS Qty: 30 10RF prednisone 5 mg Tablet 2.5 mg PO QAM losartan 50 mg tablet 50 mg PO BID mycophenolate sodium 360 mg tablet,delayed release (DR/EC) 360 mg PO BID tacrolimus [Prograf] 1 mg capsule 3 mg PO HS potassium chloride 20 mEq tablet,ER particles/crystals 60 meq PO BIDM Saccharomyces boulardii [Florastor] 250 mg Capsule 500 mg PO QDL calcium carbonate-vitamin D3 [Caltrate with Vitamin D3] 600 mg-20 mcg (800 unit) Tablet 2 tab PO DAILY Metamucil 3.4 gram/5.4 gram Powder 1 tbsp PO QDL Rx Instructions: mix into at least 8 oz of water or juice before administering Azo Urinary Pain Relief 99.5 mg Tablet 199 mg PO DIRECTED PRN (Reason: URINARY DISCOMFORT) atorvastatin 20 mg tablet 20 mg PO HS prazosin 1 mg capsule 2 mg PO HS nifedipine 30 mg tablet extended release 30 mg PO HS Rx Instructions: Take 1 tablet by mouth daily. amiloride 5 mg tablet 10 mg PO QAM metoprolol succinate 25 mg tablet extended release 24 hr 25 mg PO HS Referrals Referrals: Roby Parks MD [Primary Care Provider] - Discharge Problem: Leukocytosis Qualifiers: Leukocytosis type: unspecified Qualified Code(s): D72.829 - Elevated white blood cell count, unspecified
[2023-09-07 13:53] LABS: Basophils # (auto) 0.05 K/uL (0.00-0.20); Basophils % (auto) 0.3 %; Hemoglobin 14.1 g/dl (12.0-16.0); Immature Granulocytes % (auto) 0.6 %; Lymphocytes % (auto) 8.6 %; Mean Corpuscular Hemoglobin 29.7 pg (25.0-34.0); Mean Corpuscular Hgb Conc 33.6 g/dL (32.0-36.0); Mean Corpuscular Volume 88.6 fL (80.0-100.0); Mean Platelet Volume 9.3 fL (9.4-12.4); Monocytes # (auto) 1.97 K/uL (0.11-0.59); Monocytes % (auto) 12.1 %; Neutrophils # (auto) 12.71 K/uL (1.40-6.50); Neutrophils % (auto) 78.4 %; Platelet Count 217 K/uL (130-400); RDW Coefficient of Variation 12.3 % (11.5-14.5); Red Blood Count 4.74 M/uL (4.20-5.40); White Blood Count 16.23 K/ul (4.8-10.8)
[2023-09-07 13:57] LABS: Appearance Urine Clear (Clear); Bacteria Urine Automated Negative (Negative); Bilirubin Urine Negative (Negative); Blood Urine 2+ (Negative); Cast Urine Automated 0 /lpf (0-5); Color Urine Dark Yellow; Glucose Urine UA Negative (Negative); Ketones Urine Negative (Negative); Leukocyte Esterase Urine 2+ (Negative); Nitrite Urine Positive (Negative); Specific Gravity Urine 1.007 (1.000-1.030); Urobilinogen Urine Negative (Negative); WBC Urine Automated >30 /hpf (0-5); pH Urine 8.5 (4.5-7.5)
[2023-09-07 14:01] LABS: Protein Urine 1+ (Negative)
[2023-09-07 14:10] LABS: Pregnancy Test, Serum Negative (Negative)
[2023-09-07 14:15] LABS: Albumin Globulin Ratio 1.3 (0.9-2); Albumin Level 4.1 gm/dl (3.4-5.0); Bilirubin,Total 1.7 mg/dl (0.2-1.0); Calcium 8.9 mg/dl (8.6-10.3); Creatinine Clr Calc Pharmacy 71.1 ml/min; Est GFR (African American) 69.8 ml/min; Est GFR (Non-African American) 60.2 ml/min; Globulin 3.1 gm/dl (2.5-4.0); Potassium 3.3 mmol/L (3.5-5.1); Total Protein 7.2 gm/dl (6.0-8.3)
[2023-09-07 14:23] LABS: Magnesium 1.8 mg/dl (1.7-2.4)
--- NOTE | 2023-09-07 15:35 | Ultrasound Report ---
US renal transplant w dop CLINICAL HISTORY: renal transplant, pain, uti COMPARISON STUDY: Abdomen and pelvis CT 11/04/2021. FINDINGS: The patient's known severely atrophic [place] kidneys are not well visualized. There is a le ft lower quadrant renal transplant again noted. Mild fullness within the renal collecting systems wit hout hydronephrosis. This remains unchanged. Normal corticomedullary differentiation and cortical thi ckness. The renal transplant vein and left iliac vein are patent. Velocities and waveforms within the renal transplant artery are within normal limits measuring up to 96 cm/s. Prevoid volume of the blad willie is 114 cc. There is a post void residual of 40 cc. IMPRESSION: 1. Mild fullness within the left lower quadrant renal transplant without hydronephrosis. This is sinan lar to the prior CT examination. 2. The transplanted renal artery and vein are patent. 3. Post void residual of 40 cc. ACT 112: Negative or not required by law. Electronically signed by: Irving Wan M.D. 09/07/2023 3:32 PM
[2023-09-07] MEDS ORDERED: ACETAMINOPHEN 500 MG TAB PO STA (15:48)
--- NOTE | 2023-09-07 16:16 | History & Physical Report ---
Date of Service September 07, 2023 Assessment & Plan (1) Urinary tract infection: Plan: UTI complicated by renal transplant status, no evidence of pyelo or sepsis Leukocytosis of 16.23 With urinary symptoms, infected appearing UA. Culture pending. History of E. coli, Kleb pneumonia, Citrobacter UTIs. Due to high risk of complications for renal involvement and under treatment recommended to continue cefepime twice daily rather than Rocephin on admission until speciation is available; denies history of pseudomonal infection. Renal ultrasound with no evidence of hydro, patent transplanted renal artery and vein. No cortical/medullary change of renal transplant Multiple UTIs since 2011, improved since Myfortic dose reduction in 2021 Recurrent UTIs with Klebsiella pneumonia I. Had 1 episode complicated by C. difficile in 2020 without recurrence. 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 She does not take prophylactic vancomycin while on antibiotics and has not had a C. difficile recurrence Myfortic dose was reduced by Dr. Ruvalcaba approximately 2 years ago and patient noticed a decrease in urinary infections with only 3 since. 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 Ruvalcaba at [phone] Continue tacrolimus, mycophenolate, prednisone. Tacrolimus levels are pending. Baseline creatinine 1.11.3. No NEISHA and (3) Insomnia: Plan: Complex insomnia Follows with sleep medicine. With additional PTSD/nightmares. Continue amitriptyline, prazosin, duloxetine, zolpidem (4) Hypertension: Plan: Hypertension With complicated history due to renal dysfunction Amiloride 10 mg Losartan 50 mg bid Metoprolol 25 mg hs Nifedipine 30 mg daily Prazosin 2 mg at bedtime Patient reports that she has severe headaches with thiazides. In the past has been tolerating hydrochlorothiazide and confirms that she is taking this recently without difficulty (5) Cardiomyopathy, peripartum, : Plan: History of cardiomyopathy Last EF 50-55% without wall motion abnormalities. No evidence of acute volume overload or heart failure on admission Plan hronic stable issues: Hyperlipidemia: Statin continued Gestational DM: A1c returned to normal, BSG subsequently normal. Daily BMP. History of cholecystectomy: Noted. 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 Case was discussed with patient's transplant digital manager Dr. Ruvalcaba who is available at [phone], patient was subsequently recommended for inpatient monitoring and IV antibiotic treatment pending culture speciation. Seen at bedside. PT reports 2 days ago she had cramping similar to menstrual cramps. Tried to wait this out, but cramps progressive and had R flank pain. Her transplant is on the LEFT site opposite her pain. Has had dysuria, polyuria. + Fever at home. Struggles with incontinence during UTIs which she has had in the last day. last UTI was in July. No known history of pseudomonal infection to her knowledge. gets UTIs frequenty. After norovirus and C diff her myfortic was reduced in Sep 2022 and this improved her frequency of infection, since then has only had 3 UTIs. No chest pain, no chest pressure. No shortness of breath. No cough or respiratory symptoms no nausea/vomiting, but has decreased appetite. No diarrhea. Is on florastor. She has history of Skyler reaction to vancomycin, does not take this prophylactically for antibiotics and is never had a recurrence of her single episode of C. difficile. She reports she does have a pill in pocket cefpodoxime but this was prescribed in the setting of going out of town, she does not take this routinely for UTI symptoms and has not taken any antibiotics prior to presentation today. Medical History: Reviewed Medications: Reviewed Surgical History: Reviewed Family history: Reviewed Allergies: Reviewed Social History: No tobacco Code Status: Full code Allergies Allergy/AdvReac Type Severity Reaction Status Date / Time adhesive tape Allergy Intermediate Rash Verified 09/07/23 15:28 vancomycin Allergy Intermediate Rash Verified 09/07/23 15:28 dobutamine AdvReac Severe SLOW HRT Verified 09/07/23 15:28 RATE AND SEVERE MIGRAINE leuprolide [From Lupron] AdvReac Intermediate weight Verified 09/07/23 15:28 gain; hair loss metolazone AdvReac Intermediate migraine Verified 09/07/23 15:28 ondansetron AdvReac Intermediate migraine Verified 09/07/23 15:28 triamcinolone [From Kenalog] AdvReac Intermediate racing Verified 09/07/23 15:28 heart rate NSAIDS (Non-Steroidal AdvReac Unknown Contraindicated Verified 09/07/23 15:28 Anti-Inflamma History - RENAL TRANSPLANT Home Medications Medication Instructions Recorded Confirmed Type prednisone 5 mg tablet 2.5 mg PO QAM 06/03/19 09/07/23 History potassium chloride 20 mEq 60 meq PO BIDM 11/07/19 09/07/23 History tablet,extended release(part/cryst) cholecalciferol (vitamin D3) 1,250 50,000 units PO WK 12/20/19 09/07/23 History mcg (50,000 unit) capsule loperamide 2 mg capsule (Imodium 2 mg PO HS 01/05/21 09/07/23 History A-D) duloxetine 20 mg capsule,delayed 20 mg PO DAILY 02/03/21 09/07/23 History release (Cymbalta) clonidine HCl 0.1 mg tablet 0.1 mg PO HS 05/16/21 09/07/23 History losartan 50 mg tablet 50 mg PO BID 02/10/22 09/07/23 History magnesium oxide 400 mg (241.3 mg 1,200 mg PO BIDM 08/17/22 09/07/23 History magnesium) tablet mycophenolate sodium 360 mg 360 mg PO BID 08/17/22 09/07/23 History tablet,delayed release tacrolimus 1 mg capsule, 3 mg PO HS 08/17/22 09/07/23 History immediate-release (Prograf) hydrochlorothiazide 12.5 mg capsule 12.5 mg PO DAILY #90 caps 11/02/22 09/07/23 Rx amitriptyline 10 mg tablet 10 mg PO HS #30 tabs 06/07/23 09/07/23 Rx Saccharomyces boulardii 250 mg 500 mg PO QDL 09/07/23 09/07/23 History capsule (Florastor) amiloride 5 mg tablet 10 mg PO QAM 09/07/23 09/07/23 History atorvastatin 20 mg tablet 20 mg PO HS 09/07/23 09/07/23 History calcium carbonate 600 mg-vitamin 2 tab PO DAILY 09/07/23 09/07/23 History D3 20 mcg (800 unit) tablet (Caltrate with Vitamin D3) metoprolol succinate 25 mg 25 mg PO HS 09/07/23 09/07/23 History tablet,extended release 24 hr nifedipine 30 mg tablet,extended 30 mg PO HS 09/07/23 09/07/23 History release phenazopyridine 99.5 mg tablet 199 mg PO DIRECTED PRN URINARY 09/07/23 09/07/23 History (Azo Urinary Pain Relief) DISCOMFORT prazosin 1 mg capsule 2 mg PO HS 09/07/23 09/07/23 History psyllium husk 3.4 gram/5.4 gram 1 tbsp PO QDL 09/07/23 09/07/23 History oral powder (Metamucil) Past Med/Surg History Medical History (Updated 09/07/23 @ 16:22 by Olegario Wilson MD) Urinary tract infection Left knee pain Gestational diabetes Right groin pain Sinusitis C. difficile diarrhea 09/2021 Watery stools Daytime somnolence GERD (gastroesophageal reflux disease) Anxiety disorder, unspecified Cardiomyopathy, peripartum, (2005) EF 25%, improved to normal on 2018 stress echo Endometriosis Hemolytic uremic syndrome Hypercholesterolemia Hypertension Insomnia Irritable bowel syndrome Ovarian cyst Surgical History Distal radial fracture ORIF at [facility] [place] S/P cholecystectomy History of esophagogastroduodenoscopy (EGD) 09/12/12 Hx of colonoscopy 11/10/16 H/O wrist surgery Ganglion cyst excision H/O tooth extraction History of endometrial ablation S/P section S/P thyroid biopsy 12/19/10 @ [facility] Status post biopsy of kidney 08/27/18 History of biopsy Endomyocardial S/P appendectomy Kidney replaced by transplant Hx of kidney transplant (2010) Family History Father Colonic polyp Colorectal cancer Diabetes Irritable bowel syndrome Osteoporosis Grandfather (Paternal) Colorectal cancer Mother Depression Cerebral aneurysm Irritable bowel syndrome Hypertension Osteoporosis Denies family history of Ovarian cancer Breast cancer Social History Smoking Status: Never smoker Do You Dip or Chew Tobacco: No; Hx Alcohol Use: No Hx Substance Use: No Preferred Language: Thai Visual Impairment: No Limitations Hearing Ability: Normal marital status: Current Living Situation: Spouse and Family current occupational status: unemployed current occupation: Speech Pathologist Feels Safe at Home: Yes Childhood Exposure to Second-Hand Smoke: Yes Diet: low salt caffeine: Yes during the past year weight has: increased > 10 lbs Dental Care, Regularly: Yes Physical Activity Frequency: Daily Seatbelt Use: always Sunscreen Use: Yes Physical Exam Physical Exam: General: A&Ox3. NAD. Cooperative. HEENT: Atraumatic, normocephalic. Pulm: CTAB A&P. -wheezes, -rales, -rhonchi. Symmetrical chest rise. No increased work of breathing. No respiratory distress. Cardiac: RRR, -mrg. Radial pulses intact and symmetrical. Abdominal: Nontender, nondistended, soft. BS present. No CVA tenderness is present on exam. Extremities: Warm, dry Results & Data Results & Data Vital Signs (Past 12 Hours) Vital Signs Temp Pulse Resp BP Pulse Ox O2 Del Method 09/07/23 15:20 81 14 131/74 96 09/07/23 14:00 81 20 124/89 95 09/07/23 13:51 80 09/07/23 12:34 37.3 C 99 H 18 122/87 94 Room Air PG Care Time/CCT Total # of Minutes Spent Total Time Spent with Patient: Total time spent is greater than 50% in coordination of care (as documented) at patient's floor/unit and/or counseling patient: Coding Level of Care Code 14901 INT INP/OBS CARE 3/75MIN Diagnoses Urinary tract infection N39.0 Kidney replaced by transplant Z94.0 Insomnia G47.00 Hypertension I10 Cardiomyopathy, peripartum, O90.3
[2023-09-07] MEDS: POTASSIUM CHLORIDE / WTR 10 MEQ/100 ML PLCT IV SCH ×2 (17:26→19:05)
[2023-09-07] MEDS: LOPERAMIDE HCL 2 MG CAP PO SCH (20:16)
[2023-09-07] MEDS: LOSARTAN POTASSIUM 50 MG TAB PO SCH (20:16)
[2023-09-07] MEDS ORDERED: TACROLIMUS 1 MG CAP PO SCH (21:00)
[2023-09-07] MEDS: MAGNESIUM OXIDE 400 MG TAB PO SCH (21:14)
[2023-09-07] MEDS: POTASSIUM CHLORIDE CRTAB 20 MEQ TABCR PO SCH (21:14)
[2023-09-07] MEDS: AMITRIPTYLINE HCL 10 MG TAB PO SCH (21:15)
[2023-09-07] MEDS: cloNIDine HCL 0.1 MG TAB PO SCH (21:15)
[2023-09-07] MEDS: ATORVASTATIN 20 MG TAB PO SCH (21:15)
[2023-09-07] MEDS: METOPROLOL SUCC 25MG EXT REL TAB PO SCH (21:16)
[2023-09-07] MEDS: PRAZOSIN HCL 1 MG CAP PO SCH (21:16)
[2023-09-07] MEDS: NIFEdipine EXTENDED REL 30 MG TABCR PO SCH (21:16)
[2023-09-07] MEDS: TACROLIMUS 1 MG CAP PO SCH (21:17)
[2023-09-07] MEDS: ZOLPIDEM TARTRATE 5 MG TAB PO PRN (21:20)
[2023-09-07] MEDS: MYCOPHENOLATE SODIUM 360 MG PO SCH (22:03)
[2023-09-07] MEDS: ACETAMINOPHEN 325 MG TAB PO PRN (23:15)
[2023-09-08] MEDS: CEFEPIME 2,000 MG in SYRINGE 0 ML IV SCH ×2 (03:22→15:21)
[2023-09-08] MEDS: ACETAMINOPHEN 325 MG TAB PO PRN (08:06)
[2023-09-08] MEDS: hydroCHLOROthiazide 25 MG TAB PO SCH (08:07)
[2023-09-08] MEDS: CALCIUM 600MG + VIT D 400 IU TAB PO SCH (08:08)
[2023-09-08] MEDS: TACROLIMUS 1 MG CAP PO SCH ×2 (08:08→20:41)
[2023-09-08] MEDS: aMILoride HCL 5 MG TAB PO SCH (08:09)
[2023-09-08] MEDS: LOSARTAN POTASSIUM 50 MG TAB PO SCH ×2 (08:09→20:38)
[2023-09-08] MEDS: DULoxetine HCL 20 MG CAP PO SCH (08:10)
[2023-09-08] MEDS: predniSONE 2.5 MG TAB PO SCH (08:10)
[2023-09-08] MEDS: MAGNESIUM OXIDE 400 MG TAB PO SCH ×2 (08:11→16:55)
[2023-09-08] MEDS: MYCOPHENOLATE SODIUM 360 MG PO SCH ×2 (08:11→20:39)
[2023-09-08] MEDS: POTASSIUM CHLORIDE CRTAB 20 MEQ TABCR PO SCH ×2 (08:11→16:55)
[2023-09-08 08:23] LABS: Basophils # (auto) 0.04 K/uL (0.00-0.20); Basophils % (auto) 0.3 %; Eosinophils # (auto) 0.04 K/uL (0.00-0.50); Eosinophils % (auto) 0.3 %; Hematocrit (blood only) 41.1 % (37.0-47.0); Hemoglobin 13.5 g/dl (12.0-16.0); Immature Granulocytes # (auto) 0.05 K/uL (0.01-0.20); Immature Granulocytes % (auto) 0.4 %; Lymphocytes # (auto) 1.48 K/uL (1.20-3.40); Lymphocytes % (auto) 12.9 %; Mean Corpuscular Hemoglobin 29.5 pg (25.0-34.0); Mean Corpuscular Hgb Conc 32.8 g/dL (32.0-36.0); Mean Corpuscular Volume 89.9 fL (80.0-100.0); Mean Platelet Volume 9.4 fL (9.4-12.4); Monocytes # (auto) 1.76 K/uL (0.11-0.59); Monocytes % (auto) 15.3 %; Neutrophils # (auto) 8.13 K/uL (1.40-6.50); Neutrophils % (auto) 70.8 %; Platelet Count 197 K/uL (130-400); RDW Coefficient of Variation 12.4 % (11.5-14.5); RDW Standard Deviation 41.1 fL (36.4-46.3); Red Blood Count 4.57 M/uL (4.20-5.40)
[2023-09-08 08:43] LABS: BUN Creatinine Ratio 14.2 (10-20); Calcium 8.6 mg/dl (8.6-10.3); Creatinine Clr Calc Pharmacy 68.2 ml/min; Est GFR (African American) 66.1 ml/min; Potassium 3.7 mmol/L (3.5-5.1)
[2023-09-08] MEDS: PSYLLIUM or GUAR GUM FIBER POWDER PACKET PO SCH (11:14)
[2023-09-08] MEDS: SACCHAROMYCES BOULARDII 250 MG CAP PO SCH (11:15)
--- NOTE | 2023-09-08 14:23 | Hospitalist Progress Note ---
Date of Service September 08, 2023 Assessment & Plan (1) Urinary tract infection: Plan: UTI complicated by renal transplant status, no evidence of pyelo or sepsis Leukocytosis of 16.23. Improved to 11 today Urine culture growing gram-negative mary beth, awaiting further identification and sensitivities Continue cefepime twice daily for now Patient has a history of C. difficile in 2020 without recurrence. Patient had an episode of diarrhea today. Will check for C. difficile if she continues to have further episodes. 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 Ruvalcaba at [phone] Continue tacrolimus, mycophenolate, prednisone. Tacrolimus levels are pending. Baseline creatinine 1.11.3. (3) Insomnia: Plan: Complex insomnia Follows with sleep medicine. With additional PTSD/nightmares. Continue amitriptyline, prazosin, duloxetine, zolpidem (4) Hypertension: Plan: Hypertension With complicated history due to renal dysfunction Amiloride 10 mg Losartan 50 mg bid Metoprolol 25 mg hs Nifedipine 30 mg daily Prazosin 2 mg at bedtime Patient reports that she has severe headaches with thiazides. In the past has been tolerating hydrochlorothiazide and confirms that she is taking this recently without difficulty (5) Cardiomyopathy, peripartum, : Plan: History of cardiomyopathy Last EF 50-55% without wall motion abnormalities. No evidence of acute volume overload or heart failure on admission Plan Chronic stable issues: Hyperlipidemia: Statin continued Gestational DM: A1c returned to normal, BSG subsequently normal. Daily BMP. History of cholecystectomy: Noted. DVT: Heparin, SCDs Diet; renal, HH Dispo: Med TEle CODE: FUll Admission and Anticipated Discharge Date Admission Date: September 07, 2023 Subjective Patient feels better overall. Her right flank pain and abdominal cramps are improving. Nurse reported an episode of diarrhea. If she continues to have further episodes, will check for C. difficile. Review of Systems Review of Systems: All systems reviewed & are unremarkable except as noted in Subjective Physical Exam Physical Exam: General: Awake, conversant Heart: S1, S2/regular rate and rhythm, no murmur rubs or gallops Lungs: Clear to auscultation bilaterally. Normal effort Abdomen: Soft/nontender/nondistended. No hepatosplenomegaly Extremities: No clubbing/cyanosis. No edema Behavior: Appropriate, cooperative Results & Data Results & Data Vital Signs (Past 12 Hours) Vital Signs Temp Pulse Pulse Resp BP Pulse Ox O2 Del Method 09/08/23 09:00 Room Air 09/08/23 07:43 37.4 C 76 16 100/65 95 Room Air 09/08/23 07:00 72 09/08/23 03:07 37.2 C 74 16 101/68 94 Room Air PG Care Time/CCT Total # of Minutes Spent Total Time Spent with Patient: Total time spent is greater than 50% in coordination of care (as documented) at patient's floor/unit and/or counseling patient: Coding Level of Care Code 46084 SUB INP/OBS CARE 2/35MIN Diagnoses Urinary tract infection N39.0 Kidney replaced by transplant Z94.0 Insomnia G47.00 Hypertension I10 Cardiomyopathy, peripartum, O90.3
[2023-09-08] MEDS: ATORVASTATIN 20 MG TAB PO SCH (20:38)
[2023-09-08] MEDS: LOPERAMIDE HCL 2 MG CAP PO SCH (20:38)
[2023-09-08] MEDS: AMITRIPTYLINE HCL 10 MG TAB PO SCH (20:38)
[2023-09-08] MEDS: METOPROLOL SUCC 25MG EXT REL TAB PO SCH (20:39)
[2023-09-08] MEDS: NIFEdipine EXTENDED REL 30 MG TABCR PO SCH (20:39)
[2023-09-08] MEDS: cloNIDine HCL 0.1 MG TAB PO SCH (20:39)
[2023-09-08] MEDS: PRAZOSIN HCL 1 MG CAP PO SCH (20:39)
[2023-09-08] MEDS: ZOLPIDEM TARTRATE 5 MG TAB PO PRN (20:48)
[2023-09-09] MEDS: CEFEPIME 2,000 MG in SYRINGE 0 ML IV SCH (03:20)
[2023-09-09 06:59] LABS: Basophils # (auto) 0.05 K/uL (0.00-0.20); Basophils % (auto) 0.6 %; Eosinophils # (auto) 0.15 K/uL (0.00-0.50); Eosinophils % (auto) 1.7 %; Hematocrit (blood only) 40.6 % (37.0-47.0); Hemoglobin 13.8 g/dl (12.0-16.0); Immature Granulocytes # (auto) 0.04 K/uL (0.01-0.20); Immature Granulocytes % (auto) 0.5 %; Lymphocytes # (auto) 2.05 K/uL (1.20-3.40); Lymphocytes % (auto) 23.5 %; Mean Corpuscular Hemoglobin 30.3 pg (25.0-34.0); Mean Platelet Volume 9.3 fL (9.4-12.4); Monocytes # (auto) 1.28 K/uL (0.11-0.59); Monocytes % (auto) 14.6 %; Neutrophils # (auto) 5.17 K/uL (1.40-6.50); Neutrophils % (auto) 59.1 %; Platelet Count 211 K/uL (130-400); RDW Coefficient of Variation 12.6 % (11.5-14.5); RDW Standard Deviation 41.1 fL (36.4-46.3); Red Blood Count 4.56 M/uL (4.20-5.40); White Blood Count 8.74 K/ul (4.8-10.8)
[2023-09-09 07:13] LABS: BUN Creatinine Ratio 16.7 (10-20); Calcium 9.2 mg/dl (8.6-10.3); Creatinine Clr Calc Pharmacy 75.5 ml/min; Est GFR (African American) 74.8 ml/min; Est GFR (Non-African American) 64.5 ml/min; Potassium 3.9 mmol/L (3.5-5.1)
[2023-09-09] MEDS: ACETAMINOPHEN 325 MG TAB PO PRN (09:28)
[2023-09-09] MEDS: MYCOPHENOLATE SODIUM 360 MG PO SCH ×2 (09:28→21:02)
[2023-09-09] MEDS: CALCIUM 600MG + VIT D 400 IU TAB PO SCH (09:29)
[2023-09-09] MEDS: POTASSIUM CHLORIDE CRTAB 20 MEQ TABCR PO SCH ×2 (09:30→16:36)
[2023-09-09] MEDS: MAGNESIUM OXIDE 400 MG TAB PO SCH ×2 (09:31→16:36)
[2023-09-09] MEDS: DULoxetine HCL 20 MG CAP PO SCH (09:32)
[2023-09-09] MEDS: TACROLIMUS 1 MG CAP PO SCH ×2 (09:32→21:02)
[2023-09-09] MEDS: predniSONE 2.5 MG TAB PO SCH (09:32)
[2023-09-09] MEDS: hydroCHLOROthiazide 25 MG TAB PO SCH (09:33)
[2023-09-09] MEDS: LOSARTAN POTASSIUM 50 MG TAB PO SCH ×2 (09:33→21:01)
[2023-09-09] MEDS: aMILoride HCL 5 MG TAB PO SCH (09:33)
[2023-09-09] MEDS: SACCHAROMYCES BOULARDII 250 MG CAP PO SCH (10:57)
[2023-09-09] MEDS: PSYLLIUM or GUAR GUM FIBER POWDER PACKET PO SCH (11:31)
--- NOTE | 2023-09-09 13:07 | Hospitalist Progress Note ---
Date of Service September 09, 2023 Assessment & Plan (1) Urinary tract infection: Plan: UTI complicated by renal transplant status, no evidence of pyelo or sepsis Leukocytosis of 16.23. Improved to 11 today Urine culture grew pansensitive E. coli switch from cefepime to Keflex Patient has a history of C. difficile in 2020 without recurrence. patient has had several episodes of diarrhea. C. difficile negative. Most likely antibiotic related. Blood pressure on the low side today. Will monitor and hold blood pressure medications. 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 Ruvalcaba at [phone] Continue tacrolimus, mycophenolate, prednisone. Tacrolimus levels are pending. Baseline creatinine 1.11.3. (3) Insomnia: Plan: Complex insomnia Follows with sleep medicine. With additional PTSD/nightmares. Continue amitriptyline, prazosin, duloxetine, zolpidem (4) Hypertension: Plan: Hypertension With complicated history due to renal dysfunction Amiloride 10 mg Losartan 50 mg bid Metoprolol 25 mg hs Nifedipine 30 mg daily Prazosin 2 mg at bedtime Blood pressure on the low side today most likely secondary to diarrhea Held a.m. medications Patient reports that she has severe headaches with thiazides. In the past has been tolerating hydrochlorothiazide and confirms that she is taking this recently without difficulty (5) Cardiomyopathy, peripartum, : Plan: History of cardiomyopathy Last EF 50-55% without wall motion abnormalities. No evidence of acute volume overload or heart failure on admission Plan Chronic stable issues: Hyperlipidemia: Statin continued Gestational DM: A1c returned to normal, BSG subsequently normal. Daily BMP. History of cholecystectomy: Noted. DVT: Heparin, SCDs Diet; renal, HH Dispo: Med TEle CODE: FUll Admission and Anticipated Discharge Date Admission Date: September 07, 2023 Subjective patient is feeling better overall. Denies chest pain or shortness of breath. Has been having diarrhea. C. difficile negative. Blood pressure has been on the low side this morning. Denies dizziness or lightheadedness. Held all blood pressure medications. Review of Systems Review of Systems: All systems reviewed & are unremarkable except as noted in Subjective Physical Exam Physical Exam: General: Awake, conversant Heart: S1, S2/regular rate and rhythm, no murmur rubs or gallops Lungs: Clear to auscultation bilaterally. Normal effort Abdomen: Soft/nontender/nondistended. No hepatosplenomegaly Extremities: No clubbing/cyanosis. No edema Behavior: Appropriate, cooperative Results & Data Results & Data Vital Signs (Past 12 Hours) Vital Signs Temp Pulse Pulse Resp BP Pulse Ox O2 Del Method 09/09/23 11:31 36.8 C 75 16 107/72 96 Room Air 09/09/23 09:30 83 97/67 L 09/09/23 07:58 36.9 C 89 16 93/62 L 94 Room Air 09/09/23 07:44 60 09/09/23 03:18 36.8 C 71 16 100/68 94 Room Air Laboratory Results Abnormal lab results 09/09/23 Range/Units 06:38 MPV 9.3 L (9.4-12.4) fL [place] # (Auto) 1.28 H (0.11-0.59) K/uL PG Care Time/CCT Total # of Minutes Spent Total Time Spent with Patient: Total time spent is greater than 50% in coordination of care (as documented) at patient's floor/unit and/or counseling patient: Coding Level of Care Code 56089 SUB INP/OBS CARE 2/35MIN Diagnoses Urinary tract infection N39.0 Kidney replaced by transplant Z94.0 Insomnia G47.00 Hypertension I10 Cardiomyopathy, peripartum, O90.3
[2023-09-09] MEDS: cephALEXin 500 MG CAP PO SCH ×3 (13:35→21:00)
[2023-09-09] MEDS: ATORVASTATIN 20 MG TAB PO SCH (21:00)
[2023-09-09] MEDS: AMITRIPTYLINE HCL 10 MG TAB PO SCH (21:00)
[2023-09-09] MEDS: cloNIDine HCL 0.1 MG TAB PO SCH (21:01)
[2023-09-09] MEDS: METOPROLOL SUCC 25MG EXT REL TAB PO SCH (21:01)
[2023-09-09] MEDS: LOPERAMIDE HCL 2 MG CAP PO SCH (21:01)
[2023-09-09] MEDS: NIFEdipine EXTENDED REL 30 MG TABCR PO SCH (21:01)
[2023-09-09] MEDS: PRAZOSIN HCL 1 MG CAP PO SCH (21:02)
[2023-09-09] MEDS: ZOLPIDEM TARTRATE 5 MG TAB PO PRN (21:03)
[2023-09-10 07:17] LABS: Basophils # (auto) 0.06 K/uL (0.00-0.20); Basophils % (auto) 0.8 %; Eosinophils # (auto) 0.17 K/uL (0.00-0.50); Eosinophils % (auto) 2.2 %; Hematocrit (blood only) 39.4 % (37.0-47.0); Hemoglobin 13.1 g/dl (12.0-16.0); Immature Granulocytes # (auto) 0.04 K/uL (0.01-0.20); Immature Granulocytes % (auto) 0.5 %; Lymphocytes # (auto) 2.23 K/uL (1.20-3.40); Lymphocytes % (auto) 28.6 %; Mean Corpuscular Hgb Conc 33.2 g/dL (32.0-36.0); Mean Corpuscular Volume 90.2 fL (80.0-100.0); Mean Platelet Volume 9.3 fL (9.4-12.4); Monocytes % (auto) 10.2 %; Neutrophils # (auto) 4.51 K/uL (1.40-6.50); Neutrophils % (auto) 57.7 %; Platelet Count 230 K/uL (130-400); RDW Coefficient of Variation 12.4 % (11.5-14.5); RDW Standard Deviation 40.8 fL (36.4-46.3); Red Blood Count 4.37 M/uL (4.20-5.40); White Blood Count 7.81 K/ul (4.8-10.8)
[2023-09-10 07:31] LABS: Est GFR (African American) 76.6 ml/min; Est GFR (Non-African American) 66.1 ml/min; Potassium 3.7 mmol/L (3.5-5.1)
[2023-09-10] MEDS: MYCOPHENOLATE SODIUM 360 MG PO SCH (08:42)
[2023-09-10] MEDS: cephALEXin 500 MG CAP PO SCH (08:43)
[2023-09-10] MEDS: hydroCHLOROthiazide 25 MG TAB PO SCH (08:43)
[2023-09-10] MEDS: LOSARTAN POTASSIUM 50 MG TAB PO SCH (08:43)
[2023-09-10] MEDS: aMILoride HCL 5 MG TAB PO SCH (08:43)
[2023-09-10] MEDS: MAGNESIUM OXIDE 400 MG TAB PO SCH (08:44)
[2023-09-10] MEDS: TACROLIMUS 1 MG CAP PO SCH (08:44)
[2023-09-10] MEDS: CALCIUM 600MG + VIT D 400 IU TAB PO SCH (08:44)
[2023-09-10] MEDS: POTASSIUM CHLORIDE CRTAB 20 MEQ TABCR PO SCH (08:45)
[2023-09-10] MEDS: predniSONE 2.5 MG TAB PO SCH (08:45)
[2023-09-10] MEDS: DULoxetine HCL 20 MG CAP PO SCH (08:45)
--- NOTE | 2023-09-10 11:20 | Discharge Summary ---
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 Case was discussed with patient's transplant medical and scientific illustrator Dr. Ruvalcaba who is available at [phone], patient was subsequently recommended for inpatient monitoring and IV antibiotic treatment pending culture speciation. Seen at bedside. PT reports 2 days ago she had cramping similar to menstrual cramps. Tried to wait this out, but cramps progressive and had R flank pain. Her transplant is on the LEFT site opposite her pain. Has had dysuria, polyuria. + Fever at home. Struggles with incontinence during UTIs which she has had in the last day. last UTI was in July. No known history of pseudomonal infection to her knowledge. gets UTIs frequenty. After norovirus and C diff her myfortic was reduced in Sep 2022 and this improved her frequency of infection, since then has only had 3 UTIs. No chest pain, no chest pressure. No shortness of breath. No cough or respiratory symptoms no nausea/vomiting, but has decreased appetite. No diarrhea. Is on florastor. She has history of Skyler reaction to vancomycin, does not take this prophylactically for antibiotics and is never had a recurrence of her single episode of C. difficile. She reports she does have a pill in pocket cefpodoxime but this was prescribed in the setting of going out of town, she does not take this routinely for UTI symptoms and has not taken any antibiotics prior to presentation today. Medical History: Reviewed Medications: Reviewed Surgical History: Reviewed Family history: Reviewed Allergies: Reviewed Social History: No tobacco Code Status: Full code Admission Exam Per Admitting Provider General: A&Ox3. NAD. Cooperative. HEENT: Atraumatic, normocephalic. Pulm: CTAB A&P. -wheezes, -rales, -rhonchi. Symmetrical chest rise. No increased work of breathing. No respiratory distress. Cardiac: RRR, -mrg. Radial pulses intact and symmetrical. Abdominal: Nontender, nondistended, soft. BS present. No CVA tenderness is present on exam. Extremities: Warm, dry Principal Diagnosis 1. Acute Complicated E. coli pyelonephritis in the presence of a renal transplant 2. Immunocompromised host Discharge Exam General: Awake, conversant Heart: S1, S2/regular rate and rhythm, no murmur rubs or gallops Lungs: Clear to auscultation bilaterally. Normal effort Abdomen: Soft/nontender/nondistended. No hepatosplenomegaly Extremities: No clubbing/cyanosis. No edema Behavior: Appropriate, cooperative Discharge Data Allergies Allergy/AdvReac Type Severity Reaction Status Date / Time adhesive tape Allergy Intermediate Rash Verified 09/07/23 15:28 vancomycin Allergy Intermediate Rash Verified 09/07/23 15:28 dobutamine AdvReac Severe SLOW HRT Verified 09/07/23 15:28 RATE AND SEVERE MIGRAINE leuprolide [From Lupron] AdvReac Intermediate weight Verified 09/07/23 15:28 gain; hair loss metolazone AdvReac Intermediate migraine Verified 09/07/23 15:28 ondansetron AdvReac Intermediate migraine Verified 09/07/23 15:28 triamcinolone [From Kenalog] AdvReac Intermediate racing Verified 09/07/23 15:28 heart rate NSAIDS (Non-Steroidal AdvReac Unknown Contraindicated Verified 09/07/23 15:28 Anti-Inflamma History - RENAL TRANSPLANT Ordered Studies 09/07/23 13:57 US renal transplant w dop Stat Hospital Course (1) Urinary tract infection: UTI complicated by renal transplant status, no evidence of pyelo or sepsis Leukocytosis of 16.23 on admission. Now resolved. Urine culture grew pansensitive E. coli switched from cefepime to Keflex. Being discharged on p.o. Keflex to complete a 7-day course Patient has a history of C. difficile in 2020 without recurrence. patient has had several episodes of diarrhea. C. difficile negative. Most likely antibiotic related. blood pressure has been stable today. Patient got her blood pressure medications. 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 Ruvalcaba at [phone] Continue tacrolimus, mycophenolate, prednisone. Tacrolimus levels are pending. Baseline creatinine 1.11.3. (3) Insomnia: Complex insomnia Follows with sleep medicine. With additional PTSD/nightmares. Continue amitriptyline, prazosin, duloxetine, zolpidem (4) Hypertension: Hypertension With complicated history due to renal dysfunction Amiloride 10 mg Losartan 50 mg bid Metoprolol 25 mg hs Nifedipine 30 mg daily Prazosin 2 mg at bedtime Blood pressure medications given as blood pressure stable today. Patient reports that she has severe headaches with thiazides. In the past has been tolerating hydrochlorothiazide and confirms that she is taking this recently without difficulty (5) Cardiomyopathy, peripartum, : History of cardiomyopathy Last EF 50-55% without wall motion abnormalities. No evidence of acute volume overload or heart failure on admission Plan Chronic stable issues: Hyperlipidemia: Statin continued Gestational DM: A1c returned to normal, BSG subsequently normal. Daily BMP. History of cholecystectomy: Noted. DVT: Heparin, SCDs Diet; renal, HH Patient is going home today CODE: FUll Total Time Total Time Spent Total Time Spent (In Minutes): 35 Discharge Plan Discharge Items Patient Disposition: Home - Self-Care Reason For Visit: UTI, H/X RENAL TRANSPLANT, HYPOKALEMIA Discharge Diagnosis: 1. Complicated UTI in the presence of a renal transplant 2. Immunocompromised host Condition on Discharge: Fair Activity: Resume your previous activity Non-emergency contact: Primary Care Provider Call non-emergency contact if: you have any medication questions and your symptoms worsen Follow-up/Referrals: Roby Parks MD [Primary Care Provider] - 09/18/23 11:00 am Diet: Regular Addtl Attending Provider Instructions: Advised to follow-up with PCP in 1 week Pending Studies at Discharge: No Stand-Alone Forms: My [facility] Medications and DC Order Prescriptions: New cephalexin 500 mg Capsule 500 mg PO QID 5 Days Qty: 20 0RF Continued duloxetine [Cymbalta] 20 mg capsule,delayed release(DR/EC) 20 mg PO DAILY hydrochlorothiazide 12.5 mg capsule 12.5 mg PO DAILY Qty: 90 3RF cholecalciferol (vitamin D3) 1,250 mcg (50,000 unit) capsule 50,000 units PO WK Rx Instructions: [place] clonidine HCl 0.1 mg tablet 0.1 mg PO HS loperamide [Imodium A-D] 2 mg capsule 2 mg PO HS Rx Instructions: THEN PRN IF DIARRHEA magnesium oxide 400 mg (241.3 mg magnesium) tablet 1,200 mg PO BIDM amitriptyline 10 mg tablet 10 mg PO HS Qty: 30 10RF prednisone 5 mg Tablet 2.5 mg PO QAM losartan 50 mg tablet 50 mg PO BID mycophenolate sodium 360 mg tablet,delayed release (DR/EC) 360 mg PO BID tacrolimus [Prograf] 1 mg capsule 3 mg PO HS potassium chloride 20 mEq tablet,ER particles/crystals 60 meq PO BIDM Saccharomyces boulardii [Florastor] 250 mg Capsule 500 mg PO QDL calcium carbonate-vitamin D3 [Caltrate with Vitamin D3] 600 mg-20 mcg (800 unit) Tablet 2 tab PO DAILY Metamucil 3.4 gram/5.4 gram Powder 1 tbsp PO QDL Rx Instructions: mix into at least 8 oz of water or juice before administering Azo Urinary Pain Relief 99.5 mg Tablet 199 mg PO DIRECTED PRN (Reason: URINARY DISCOMFORT) atorvastatin 20 mg tablet 20 mg PO HS prazosin 1 mg capsule 2 mg PO HS nifedipine 30 mg tablet extended release 30 mg PO HS Rx Instructions: Take 1 tablet by mouth daily. amiloride 5 mg tablet 10 mg PO QAM metoprolol succinate 25 mg tablet extended release 24 hr 25 mg PO HS Discharge Orders: Discharge Order (Routine); Ordered 09/10/23 Ordered By: Rachelle Valentine Admission Data Admit Date/Time: 09/07/23 16:34 Attending Provider: Rachelle Valentine Admit Provider: Olegario Wilson Primary Care Provider: Roby Parks V. Other Interventions: Discharge Summary Assessment (RN) Last Done: 09/10/23 11:52 Coding Level of Care Code 84005 INP/OBS DISCH >30 MIN Diagnoses Urinary tract infection N39.0 Kidney replaced by transplant Z94.0 Insomnia G47.00 Hypertension I10 Cardiomyopathy, peripartum, O90.3
== END 2023-09-10 12:16 | disposition home or self-care (01) | DRG 689 ==
LOC: ED 12:22 → 2N 16:34 → SUATTDRO 16:34 → 2N 20:03